=== PATIENT | male | born 1950 | race Caucasian/White ===

== ENCOUNTER 2017-05-24 15:41 | Emergency (ER) | payer OTHER, MEDICARE ==
--- NOTE | 2017-05-24 16:33 | RAD ---
INDICATION: Syncope COMPARISON: None. TECHNIQUE: Single AP portable view of the chest was obtained. FINDINGS: Image quality is compromised due to the relative inferiority of a portable chest x-ray. The heart and mediastinum exhibit normal size and contour. The lungs are grossly clear. There is no evidence of a large pleural effusion. Visualized bones are normal for the patient's age. IMPRESSION: No radiographic evidence for acute cardiopulmonary abnormality on this portable chest x-ray.
[2017-05-24 16:34] LABS: ABS Basophils 0.1 10^3/ul (0-0.2); ABS Eosinophils 0.1 10^3/ul (0-0.6); ABS Lymphocytes 1.2 10^3/ul (1.0-4.8); ABS Monocytes 0.7 10^3/ul (0-0.8); ABS Neutrophils 7.7 10^3/ul (1.5-7.7); ABS Nucleated RBC 0 10^3/ul; Eosinophil % 1.5 % (0-6); Hematocrit 46 % (42-52); Hemoglobin 15.7 g/dl (14.0-18.0); Mean Corpuscular HGB Conc 34 g/dl (31-36); Mean Corpuscular Hemoglobin 30 pg (27-31); Mean Corpuscular Volume 89 fL (80-94); Mean Platelet Volume 8 um3 (7.4-10.4); Nucleated Red Blood Cells % 0; Platelet Count 195 10^3/ul (150-450); Red Blood Count 5.18 10^6/ul (4.0-5.4); Red Cell Distribution Width 13 % (10.5-15); White Blood Count 9.7 10^3/ul (3.5-10.8)
[2017-05-24 16:46] LABS: INR 0.86 (0.77-1.02)
[2017-05-24 18:13] VITALS: BP 159/87
--- NOTE | 2017-05-24 18:46 | ED ---
Ernie Sheehan Natalie, scribed for Santos Langley MD on 05/24/17 at 1613 . Syncope/Near Syncope - HPI Summary HPI Summary: The pt is a 66 y/o M BIBA to the ED c/o syncopal episode an hour ago. The pt was running on a treadmill exercising when he felt lightheaded, and then the next thing he remembers is someone asking him who the president is. The pt reports no pain, but states that this is an episode of atrial fibrillation because of similar past episodes. Per the pts daughter, the pt was found fallen down on the end of the treadmill, pale in color with cold and purple extremities. The pt passed out for 10 seconds and hit his head on a window sill , and his pulse was in the 200s. When he awoke, the pt was unresponsive and was sitting against the wall. The pt passed out again for 30 seconds, and was alert and oriented when he woke up. The pts daughter took his pulse again and it was in the 90s. Pt additionally c/o laceration on head and abrasions on left shoulder, left elbow, right knee, and mid back. The pt takes 325mg ASA once a day. - History Of Current Complaint Chief Complaint: EDSyncope Time Seen by Provider: 05/24/17 15:48 Hx Obtained From: Patient, Family/Advertising Agency Manager - daughter Onset/Duration: Sudden Onset, Lasting Minutes, Resolved Timing: Minutes Context: Loss Of Consciousness Activity At Onset: Other - exercising on treadmill Associated Head Trauma: Yes Aggravating Factor(s): Nothing Alleviating Factor(s): Nothing Associated Signs And Symptoms: Other - lightheadedness, laceration to head, pale skin, cold and purple extremities, abrasions on left shoulder, left elbow, mid back, right knee Related History: Similar Episode/Dx as - third time this has happened while pt was exercising - Allergies/Home Medications Allergies/Adverse Reactions: Allergies Allergy/AdvReac Type Severity Reaction Status Date / Time No Known Allergies Allergy Verified 05/24/17 16:02 Home Medications: Home Medications Advair Diskus 100-50* 1 puff INH BID PRN 05/24/17 [History Confirmed 05/24/17] Aspirin TAB* [Aspirin 325 MG TAB*] 325 mg PO DAILY 05/24/17 [History Confirmed 05/24/17] Lipitor 20 MG* 20 mg PO DAILY 05/24/17 [History Confirmed 05/24/17] Lisinopril TAB* [Prinivil TAB 10 MG*] 20 mg PO DAILY 05/24/17 [History Confirmed 05/24/17] Propranolol TAB* [Inderal TAB*] 40 mg PO DAILY PRN 05/24/17 [History Confirmed 05/24/17] Zaleplon (NF) [Sonata (NF)] 10 mg PO BEDTIME PRN 05/24/17 [History Confirmed ] PMH/Surg Hx/FS Hx/Imm Hx Previously Healthy: No Cardiovascular History: Reports: Hx Atrial Fibrillation, Hx Syncope Opthamlomology History: Denies: Hx Legally Blind EENT History: Denies: Hx Deafness Infectious Disease History: No Infectious Disease History: Denies: Traveled Outside the [place] in Last 30 Days - Family History Known Family History: Negative: Cardiac Disease, Hypertension, Diabetes - Social History Alcohol Use: Daily Alcohol Amount: 3-4 beers/wine daily Substance Use Type: Reports: None Smoking Status (MU): Never Smoked Tobacco Review of Systems Negative: Fever Positive: Other - laceration to head, pale skin, cold and purple extremities, abrasions on left shoulder, left elbow, mid back, right knee Neurological: Other - lightheadedness All Other Systems Reviewed And Are Negative: Yes Physical Exam - Summary Physical Exam Summary: Appearance: The patient is well-nourished in no acute distress and in no acute pain. Skin: The skin is warm and dry and skin color reflects adequate perfusion. There are abrasions on right mid back, left shoulder, right knee. HEENT: The head is normocephalic and atraumatic. The pupils are equal and reactive. The conjunctivae are clear and without drainage. Nares are patent and without drainage. Mouth reveals moist mucous membranes and the throat is without erythema and exudate. The external ears are intact. The ear canals are patent and without drainage. The tympanic membranes are intact. There is a 6 cm abrasion to left parietal scalp. Neck: The neck is supple with full range of motion and non-tender. There are no carotid bruits. There is no neck vein distension. Respiratory: Chest is non-tender. Lungs are clear to auscultation and breath sounds are symmetrical and equal. Cardiovascular: Heart is regular rate and rhythm. There is no murmur or rub auscultated. There is no peripheral edema and pulses are symmetrical and equal. Abdomen: The abdomen is soft and non-tender. There are normal bowel sounds heard in all four quadrants and there is no organomegaly palpated. Musculoskeletal: There is no back tenderness noted. Extremities are non-tender with full range of motion. There is good capillary refill. There is no peripheral edema or calf tenderness elicited. Neurological: Patient is alert and oriented to person, place and time. The patient has symmetrical motor strength in all four extremities. Cranial nerves are grossly intact. Deep tendon reflexes are symmetrical and equal in all four extremities. Psychiatric: The patient has an appropriate affect and does not exhibit any anxiety or depression. Triage Information Reviewed: Yes Vital Signs On Initial Exam: Initial Vitals Temp Pulse Resp BP Pulse Ox 97.2 F 74 15 164/99 97 05/24/17 15:47 05/24/17 15:47 05/24/17 15:47 05/24/17 15:47 05/24/17 15:47 Vital Signs Reviewed: Yes - Stevie Coma Scale Coma Scale Total: 15 Diagnostics - Vital Signs Vital Signs Temp Pulse Resp BP Pulse Ox 05/24/17 16:00 74 14 158/95 97 05/24/17 15:51 14 05/24/17 15:49 164/99 05/24/17 15:47 97.2 F 74 15 164/99 97 - Laboratory Lab Results: Lab Results 05/24/17 05/24/17 05/24/17 Range/Units 16:25 16:25 16:25 WBC 9.7 (3.5-10.8) 10^3/ul RBC 5.18 (4.0-5.4) 10^6/ul Hgb 15.7 (14.0-18.0) g/dl Hct 46 (42-52) % MCV 89 (80-94) fL MCH 30 (27-31) pg MCHC 34 (31-36) g/dl RDW 13 (10.5-15) % Plt Count 195 (150-450) 10^3/ul MPV 8 (7.4-10.4) um3 Neut % (Auto) 78.7 (38-83) % Lymph % (Auto) 12.0 L (25-47) % [place] % (Auto) 7.2 (1-9) % Eos % (Auto) 1.5 (0-6) % Baso % (Auto) 0.6 (0-2) % Absolute Neuts (auto) 7.7 (1.5-7.7) 10^3/ul Absolute Lymphs (auto) 1.2 (1.0-4.8) 10^3/ul Absolute Monos (auto) 0.7 (0-0.8) 10^3/ul Absolute Eos (auto) 0.1 (0-0.6) 10^3/ul Absolute Basos (auto) 0.1 (0-0.2) 10^3/ul Absolute Nucleated RBC 0 10^3/ul Nucleated RBC % 0 INR (Anticoag Therapy) 0.86 (0.77-1.02) Sodium 135 (133-145) mmol/L Potassium 4.3 (3.5-5.0) mmol/L Chloride 100 L (101-111) mmol/L Carbon Dioxide 28 (22-32) mmol/L Anion Gap 7 (2-11) mmol/L BUN 23 (6-24) mg/dL Creatinine 1.16 (0.67-1.17) mg/dL Est GFR ( Amer) 81.0 (>60) Est GFR (Non-Af Amer) 63.0 (>60) BUN/Creatinine Ratio 19.8 (8-20) Glucose 119 H (70-100) mg/dL Lactic Acid (0.5-2.0) mmol/L Calcium 9.1 (8.6-10.3) mg/dL Magnesium 2.5 (1.9-2.7) mg/dL Total Bilirubin 0.50 (0.2-1.0) mg/dL AST 23 (13-39) U/L ALT 21 (7-52) U/L Alkaline Phosphatase 60 (34-104) U/L Troponin I 0.04 H* (<0.04) ng/mL Total Protein 7.3 (6.4-8.9) g/dL Albumin 4.4 (3.2-5.2) g/dL Globulin 2.9 (2-4) g/dL Albumin/Globulin Ratio 1.5 (1-3) TSH 4.58 (0.34-5.60) mcIU/mL 05/24/17 Range/Units 16:25 WBC (3.5-10.8) 10^3/ul RBC (4.0-5.4) 10^6/ul Hgb (14.0-18.0) g/dl Hct (42-52) % MCV (80-94) fL MCH (27-31) pg MCHC (31-36) g/dl RDW (10.5-15) % Plt Count (150-450) 10^3/ul MPV (7.4-10.4) um3 Neut % (Auto) (38-83) % Lymph % (Auto) (25-47) % [place] % (Auto) (1-9) % Eos % (Auto) (0-6) % Baso % (Auto) (0-2) % Absolute Neuts (auto) (1.5-7.7) 10^3/ul Absolute Lymphs (auto) (1.0-4.8) 10^3/ul Absolute Monos (auto) (0-0.8) 10^3/ul Absolute Eos (auto) (0-0.6) 10^3/ul Absolute Basos (auto) (0-0.2) 10^3/ul Absolute Nucleated RBC 10^3/ul Nucleated RBC % INR (Anticoag Therapy) (0.77-1.02) Sodium (133-145) mmol/L Potassium (3.5-5.0) mmol/L Chloride (101-111) mmol/L Carbon Dioxide (22-32) mmol/L Anion Gap (2-11) mmol/L BUN (6-24) mg/dL Creatinine (0.67-1.17) mg/dL Est GFR ( Amer) (>60) Est GFR (Non-Af Amer) (>60) BUN/Creatinine Ratio (8-20) Glucose (70-100) mg/dL Lactic Acid 2.0 (0.5-2.0) mmol/L Calcium (8.6-10.3) mg/dL Magnesium (1.9-2.7) mg/dL Total Bilirubin (0.2-1.0) mg/dL AST (13-39) U/L ALT (7-52) U/L Alkaline Phosphatase (34-104) U/L Troponin I (<0.04) ng/mL Total Protein (6.4-8.9) g/dL Albumin (3.2-5.2) g/dL Globulin (2-4) g/dL Albumin/Globulin Ratio (1-3) TSH (0.34-5.60) mcIU/mL Result Diagrams: 05/24/17 16:25 05/24/17 16:25 Lab Statement: Any lab studies that have been ordered have been reviewed, and results considered in the medical decision making process. - Radiology CXR Xray Interpretation: No Acute Changes - No radiographic evidence for acute cardiopulmonary abnormality on this portable chest x-ray. ED physician has reviewed this report. Radiology Interpretation Completed By: Radiologist - EKG 16:15 Cardiac Rate: NL EKG Rhythm: Sinus Rhythm - 72BPM EKG Interpretation: Nml SR. Re-Evaluation - Re-Evaluation First Eval Re-Evaluation Time: 17:40 Comment: The patient and his family are thinking about what they want to do. Course/Dx Course Of Treatment: Mr. Hollingsworth presented with a classic syncopal episode during which his carotid pulse was 200 and radial pulse unobtainable according to his daughter. This has happened once before also after exercising. Also while riding bicycles with Dr. Jewell, he had an episode of lightheadedness, Dr. Jewell took his pulse and roported that he might have A-Fib. A diagnosis has not been confirmed. He exercises hard every day. His W/U was negative aside from an indeterminant troponin. I recommended admission, R/O and monitoring to him but he was unwilliing because these episodes are so infrequent. I contacted Dr. Dhillon who also recommended admission but was willing to see him on Friday for an implantable event monitor and he was willing to do that. - Diagnoses Provider Diagnoses: Syncope - Physician Notifications Discussed Care of Patient With: Cecille Dhillon - I talked with Dr. Dhillon, and she recommends the patient is admitted to [facility] [place]. Time Discussed With Above Provider: 16:15 Discharge - Discharge Plan Condition: Stable Disposition: HOME Patient Education Materials: Syncope (ED) Referrals: Tom Ortega MD [Primary Care Provider] - Cecille Dhillon MD [Medical Doctor] - 05/27/17 Additional Instructions: Follow up with Dr. Dhillon at on 05/27/17. Return to the Emergency Department if any new or worsening symptoms occur. The documentation as recorded by the Ernie henry Natalie accurately reflects the service I personally performed and the decisions made by , Santos Langley MD.
== END 2017-05-24 18:27 | disposition home or self-care (01) ==
LOC: ED 15:41
DX: R55 Syncope and collapse (principal)
CPT/HCPCS: 36415; 71010; 80053; 83605; 83735; 84443; 84484; 85025; 85610; 93005; 99283

== ENCOUNTER → 2017-09-01 10:19 | Day surgery (SDC) | payer OTHER, BC, MEDICARE ==
[~2017-09-01 10:19] MED LIST: Aspirin 81 mg CHEW TAB* 81 MG TAB.CHEW ONE; Diazepam TAB(*) 5 MG ONE; Heparin 2 UNITS/ML IVPREMIX* 2,000 ML IV ONE; Heparin(*) 1000 UNIT/ML 10 ML VIAL CATH LAB IV ONE; Iohexol 350 (CONTRAST) 200 ML MDV IV ONE; Lidocaine 1% INJ* 10 MG/ML 30 ML SDV ONE; Midazolam* 1 MG/ML 10 ML VIAL (10 MG) ONE; VERAPAMIL 2.5 MG/ML 2 ML VIAL ** 5 mg/2 ml ONE; diPHENhydraMINE PO* 25 MG ONE; fentaNYL* 50 MCG/ML 2 ML VIAL (100 MCG VIAL) ONE; nitroGLYCERIN DRIP* 25,000 MCG/250 ML BTL ONE
[2017-09-01 14:31] VITALS: BP 112/65
--- NOTE | 2017-09-02 03:49 | CATH ---
AMENDED REPORT TO CORRECT ACCOUNT NUMBER CC: Dr. Ortega; Dr. Dr. Panda Cochran, Electrophysiology Department, Cardiology , [facility], [place], [place] * CARDIAC CATHETERIZATION: DATE OF ADMISSION: 09/01/17 - [facility] CATH PROCEDURE: Left heart catheterization and coronary angiography. INDICATION: Syncope with exercise, presumed ventricular tachycardia. HISTORY: The patient is a 67-year-old gentleman with very little past medical history, who has had 2 episodes where he has been running on a treadmill, felt dizzy and collapsed and became unresponsive. Both times, he was unresponsive for a few seconds and then was somewhat groggy after the episodes. The patient did have an echocardiogram in the last 2 years, which showed a normal LV size and systolic function and normal valves. Cardiac catheterization was recommended to rule out significant coronary artery disease. DESCRIPTION OF PROCEDURE: The patient was brought to the cardiac catheterization lab in a fasting state. Informed consent had been obtained prior to the procedure. All labs had been reviewed. The patient was placed supine on the procedure table. His right radial area was cleaned and draped in the usual fashion. 1% lidocaine was used for local anesthesia. The right radial wrist artery was entered by a Seldinger technique and a guidewire was placed. Over the guidewire, a 5-Yoruba hydrophilic sheath was placed in the right radial artery and a cocktail of nitroglycerin and heparin was injected into the sheath. The patient underwent coronary angiography using a 5-Yoruba TIG catheter. At the end of the procedure, the sheath was removed and pressure was applied with a HemoBand. The patient tolerated the procedure well with no complications. A total of 35 cc of dye was used. A total of 2.2 minutes of fluoro time was used. FINDINGS: 1. Left main. The left main was normal in size. It bifurcated into the LAD and circumflex. There was no evidence of stenosis. 2. Left anterior descending artery. The LAD was normal in size. It gave off 1 large diagonal vessel. There was no evidence of stenosis. 3. Left circumflex artery. It was normal in size. It gave off 2 obtuse marginal branches. There was no evidence of stenosis. 4. Right coronary. The right coronary was a large dominant vessel giving off the PDA and 3 posterolateral branches. There was no evidence of stenosis. IMPRESSION: Normal coronary arteries. RECOMMENDATION: The patient will continue evaluation for his syncopal episodes. [id number]/[facility] #: [id number] GOVIND
== END | disposition home or self-care (01) ==
LOC: CHICATH 10:19
PROVIDERS: ATTEND Specialist
DX: I47.9 Paroxysmal tachycardia, unspecified (principal); R55 Syncope and collapse; I10 Essential (primary) hypertension; R00.2 Palpitations; Z79.82 Long term (current) use of aspirin
CPT/HCPCS: 93454; 99156; A9270-GY; C1887; J1644; J2250; J3010